=== PATIENT | female | born 1950 | race Caucasian/White ===

== ENCOUNTER 2024-07-12 08:56 | Emergency (ER) | payer MEDICARE, SELFPAY ==
[2024-07-12] VITALS (7 sets, daily range): BP systolic 166–212; BP diastolic 69–187; PULSE 82–89; RESP 17–20; TEMP 36.7–36.9; O2SAT 97–100
--- NOTE | ~2024-07-12 | CT_ITS ---
CT brain wo con Ordering provider: Jackie Linares APRN History: 73 years Female with . L sided weakness, difficulty swallowing . Comparison: None. Technique: CT of the head without contrast. Radiation reduction technique utilized.The dose-length product was 605.33 mGy-cm. FINDINGS: BRAIN PARENCHYMA AND CSF SPACES: No midline shift, mass effect or hemorrhage. The brain parenchyma a nd CSF spaces are otherwise normal. VISUALIZED PARANASAL SINUSES: Well aerated. MASTOIDS: Well aerated. BONES: The bones appear intact. SOFT TISSUES: Visualized nasopharynx is normal. Superficial soft tissues are normal. IMPRESSION: No acute intracranial findings. Reviewed, dictated and finalized at location A.
--- NOTE | ~2024-07-12 | CT_ITS ---
CT of the Abdomen and Pelvis: Indication: Hematuria, elevated alkaline phosphatase Technique: 2.5 mm axial scans were obtained through the abdomen and pelvis following intravenous adm inistration of 100 cc of Omnipaque 350. Dose reduction technique was used on this scan by utilizing a utomated exposure control and iterative reconstruction technique. The dose-length product (DLP) was 9 88.77 mGy-cm. Findings: Scans through the lung bases are unremarkable. The liver, spleen, pancreas, gallbladder, adrenals and kidneys are within normal limits. There are at herosclerotic calcifications of the aorta. No lymphadenopathy. No bowel obstruction or bowel wall thickening. There is no evidence to suggest acute appendicitis. Images through the pelvis were performed. Urinary bladder unremarkable. No pelvic mass seen. No ascit es. Impression: No significant abnormalities seen. Reviewed, dictated and finalized at [facility]. Impression: No significant abnormalities seen.
--- NOTE | 2024-07-12 10:22 | ED.GENADULT ---
HPI - General Adult General Chief complaint: Weakness <Jackie Linares APRN - Last Filed: 07/12/24 17:04> Stated complaint: changes in my body, weakness <Jackie Linares APRN - Last Filed: 07/12/24 17:04> Time Seen by Provider: 07/12/24 09:03 <Jackie Linares APRN - Last Filed: 07/12/24 17:04> History of Present Illness HPI narrative: Patient is a 73-year-old female who presents to the with 2 weeks of left arm weakness, left leg, and difficulty swallowing. She reports approximately 2 weeks ago she was sitting on the toilet and strain so hard because she was constipated. Her symptoms started shortly after with left-sided weakness. Patient reports she has a history diabetes hypertension but does not have a primary care. She also endorses a itchy vagina. patient denies any chest pain, shortness of breath, or other signs/symptoms of infection. <Jackie Linares APRN - Last Filed: 07/12/24 17:04> Related Data Allergies/adverse reactions: Allergies Allergy/AdvReac Type Severity Reaction Status Date / Time No Known Allergies Allergy Verified 07/12/24 08:57 <Jackie Linares APRN - Last Filed: 07/12/24 17:04> Review of Systems Review of Systems: All systems reviewed & are unremarkable except as noted in HPI and below <Jackie Linares APRN - Last Filed: 07/12/24 17:04> Exam Narrative: GENERAL: Well appearing, well-nourished, non-toxic, in no acute distress. HEAD: Normocephalic, atraumatic. NECK: Supple. No adenopathy, no masses. RESPIRATORY: Airway patent, respirations nonlabored. Clear to auscultation bilaterally, no rales, rhonchi, wheezing. CARDIOVASCULAR: Regular rate and rhythm without murmurs, rubs, or gallops. Peripheral pulses 2+ and equal bilaterally. ABDOMINAL: Soft, nontender, nondistended, no hepatosplenomegaly. Normoactive BS. MUSCULOSKELETAL: Moves all extremities. Strength/ROM intact without gross deformities. SKIN: Warm, dry, normal color. Upon examination of patient's groin it appear she has yeast in the skin and labial folds. NEURO: A&O X3. Speech clear. Cranial nerves II-XII grossly intact. No ataxic movements. PSYCHIATRIC: Appropriate mood and affect. Normal interaction. <Jackie Linares APRN - Last Filed: 07/12/24 17:04> Course FIELD SALES ASSOCIATE/PA Physician Supervision For this patient encounter, I reviewed the FIELD SALES ASSOCIATE or PA documentation, treatment plan, and medical decision making; and I had [id number] time with this patient. <Geoff Post MD - Last Filed: 07/12/24 19:03> Vital Signs Vital signs: Vital Signs Respiratory Rate 20 07/12/24 09:10 Pulse Oximetry 100 07/12/24 09:10 Temperature 98.1 F 07/12/24 17:01 Pulse Rate 82 07/12/24 17:01 Respiratory Rate 20 07/12/24 17:01 Blood Pressure 182/69 H 07/12/24 17:01 Pulse Oximetry 99 07/12/24 17:01 <Jackie Linares APRN - Last Filed: 07/12/24 17:04> Vital Signs Respiratory Rate 20 07/12/24 09:10 Pulse Oximetry 100 07/12/24 09:10 Temperature 98.1 F 07/12/24 17:01 Pulse Rate 82 07/12/24 17:01 Respiratory Rate 20 07/12/24 17:01 Blood Pressure 182/69 H 07/12/24 17:01 Pulse Oximetry 99 07/12/24 17:01 <Geoff Post MD - Last Filed: 07/12/24 19:03> Medical Decision Making MDM Narrative Medical decision making narrative: Will order head CT due to patient's recent neurological symptoms. Will order diflucan for patient's yeast infection. Will check patient's A1c to determine whether not her weakness may be due to hyperglycemia. Spoke with hospitalist who reports patient does not meet criteria for admission. Will advise patient to follow-up with primary care provider on Friday to further address high blood pressure and hyperglycemia. Patient and her daughter verbalize agreement with plan. <Jackie Linares APRN - Last Filed: 07/12/24 17:04> Differential Diagnosis Differential Diagnosis: uncontrolled
[2024-07-12 10:40] LABS: Basophils Percent Auto 0.3 % (0.2-1.2); Eosinophils Absolute Auto 0.1 K/mm3 (0-0.3); Eosinophils Percent Auto 0.5 % (0-4.4); Hematocrit 44.1 % (37.0-47.0); Hemoglobin 15.6 g/dL (12.0-15.0); Immature Granulocyte Absolute 0.04 K/mm3 (0.00-0.031); Immature Granulocyte Percent A 0.4 % (0-0.5); Immature Platelet Fraction Pct 15.6 % (0.9-11.2); Lymphocytes Percent Auto 17.4 % (18.3-44.2); Mean Corpuscular HGB Conc 35.4 g/dl (32-36); Mean Corpuscular Hemoglobin 31.7 pg (26-34); Mean Corpuscular Volume 89.6 fl (80-100); Mean Platelet Volume 13.6 fl (7.4-10.4); Monocytes Absolute Auto 0.4 K/mm3 (0.1-0.6); Monocytes Percent Auto 4.4 % (2.6-8.5); Neutrophils Absolute Auto 7.1 K/mm3 (1.3-6.7); Platelet Count Result 157 k/mm3 (150-375); Red Blood Count 4.92 M/mm3 (4.2-5.4); White Blood Count 9.2 K/mm3 (4.5-10.0)
[2024-07-12 10:48] LABS: Prothrombin Time 13.6 Seconds (11.1-14.7)
[2024-07-12 10:49] LABS: Partial Thromboplastin Time 24.4 Seconds (22.3-36.8)
[2024-07-12 10:50] LABS: Lactic Acid Reflex 1.4 mmol/L (0.7-2.0)
[2024-07-12 10:51] LABS: Alanine Aminotransferase 17 U/L (6-35); Albumin Level 4.4 g/dL (3.5-5.1); Alkaline Phosphatase 146 U/L (38-126); Anion Gap 11 mmol/L (4-12); Aspartate Amino Transferase 22 U/L (14-36); Blood Urea Nitrogen 14 mg/dL (7-17); Calcium 9.1 mg/dL (8.4-10.2); Carbon Dioxide 24 mmol/L (22-30); Chloride 100 mmol/L (98-107); Creatine Kinase 64 U/L (30-135); Estimated CRCL calculation 65 ml/min; Estimated Glomerular Filt Rate > 60; Glucose 322 mg/dL (65-110); Potassium 3.9 mmol/L (3.4-5.0); Sodium 135 mmol/L (137-145)
[2024-07-12 10:57] LABS: Hemoglobin A1C 13.6 % (<5.7)
[2024-07-12 11:04] LABS: Troponin I < 0.012 ng/mL (0.000-0.034)
[2024-07-12] MEDS: SODIUM CHLORIDE 0.9% IV 1,000 ML 999 ML IV CONT (11:10)
[2024-07-12] MEDS: FLUCONAZOLE 100 MG TABLET PO (11:11)
[2024-07-12] MEDS: hydrALAZINE HCL 20 MG/ML VIAL 10 MG IV PUSH (11:12)
[2024-07-12 11:16] LABS: Add Urine Microscopic? YES; Appearance Urine Cloudy (Clear); Bacteria Urine 4+ /hpf; Bilirubin Urine Negative (Negative); Blood Urine 2+ (Negative); Color Urine Yellow (Yellow); Glucose Urine UA 3+ mg/dL (Negative); Ketones Urine 3+ mg/dL (Negative); Leukocyte Esterase Ur 1+ LEU/UL (Negative); Need Manual Microscopic Reviewed; Nitrate Urine Negative (Negative); Protein Urine Trace mg/dL (Negative); Specific Grav Ur 1.045 (1.001-1.035); Squamous Epithelial Cell Urine Many /hpf (Few); Urobilinogen Urine 0.2 mg/dL (<2.0); WBC Urine 21-50 /hpf (0-3)
--- NOTE | 2024-07-12 11:51 | PC.NURSE ---
Attempted to collect blood cultures 4 times on patient. Provider notified and saddle mechanic called to attempt blood culture collection.
== END 2024-07-12 17:09 | disposition home or self-care (01) ==
PROVIDERS: Emergency Provider Registered Nurse
DX: E11.65 Type 2 diabetes mellitus with hyperglycemia (principal); I10 Essential (primary) hypertension; Z79.899 Other long term (current) drug therapy; Z79.84 Long term (current) use of oral hypoglycemic drugs
CPT/HCPCS: 36415; 70450; 74177; 80053; 81001; 82550; 83036; 83605; 84443; 84484; 85025; 85055; 85610; 85730; 87040; 87086; 96361; 96365; 96375; 99284; A9270; J0360; J0696; J7030; Q9967